=== PATIENT | male | born 1975 | race African-American/Black ===

== ENCOUNTER 2017-02-02 21:00 | Emergency (ER) | payer SELFPAY ==
[~2017-02-02] VITALS: Ht 185.4 cm; Wt 102.1 kg
[2017-02-02 21:22] VITALS: BP 128/70
[2017-02-02 21:47] LABS: BILIRUBIN,URINE NEGATIVE (NEG); GLUCOSE,URINE NEGATIVE (NEG); NITRITE,URINE NEGATIVE (NEG); PROTEIN,URINE NEGATIVE (NEG-TRACE); UROBILINOGEN,URINE 0.2 mg/dL (0.2 mg/dL)
[2017-02-02 21:55] LABS: BACTERIA,URINE 0 /HPF (0-FEW); RBC,URINE OCC /HPF (0-2); SQUAMOUS EPITHELIAL CELL,UR OCC /LPF; WBC,URINE 20-40 /HPF (0-4)
[2017-02-02] MEDS ORDERED: metroNIDAZOLE 500 MG TABLET PO ONE (22:00)
[2017-02-02] MEDS ORDERED: AZITHROMYCIN 250 MG TABLET. PO ONE (22:00)
[2017-02-02] MEDS ORDERED: cefTRIAXone IM 250 MG VIAL IM ONE (22:00)
--- NOTE | 2017-02-02 22:14 | PHYS DOC ---
Past Medical History Past Medical History: No Pertinent History Past Surgical History: No Surgical History Alcohol Use: Occasionally Drug Use: None Adult General Chief Complaint Chief Complaint: PAIN ON URINATION HPI HPI Patient is a 41 year old medical presents with dysuria and penile discharge for 1 day. Patient is concerned about STDs and would like to be tested and treated. He states the partner has similar symptoms. He states he has hx of previous STDs Review of Systems Review of Systems Constitutional: Denies fever or chills [] GI: Denies abdominal pain, nausea, vomiting, bloody stools or diarrhea [] : dysuria and penile discharge Musculoskeletal: Denies back pain or joint pain [] Integument: Denies rash or skin lesions [] Neurologic: Denies headache, focal weakness or sensory changes [] Current Medications Current Medications Current Medications Medications (Trade) Dose Ordered Sig/Cinthia Start Time Stop Time Status Last Admin Dose Admin Azithromycin (Zithromax) 1,000 mg 1X ONCE 02/02/17 22:00 02/02/17 22:01 DC Ceftriaxone Sodium (Rocephin Im) 250 mg 1X ONCE 02/02/17 22:00 02/02/17 22:01 DC Metronidazole (Flagyl) 2,000 mg 1X ONCE 02/02/17 22:00 02/02/17 22:01 DC Allergies Allergies Allergies Coded Allergies Type Severity Reaction Last Updated Verified No Known Drug Allergies 02/02/17 No Physical Exam Physical Exam Constitutional: Well developed, well nourished, no acute distress, non-toxic appearance. [] Abdomen: Bowel sounds normal, soft, no tenderness, no masses, no pulsatile masses. [] Skin: Warm, dry, no erythema, no rash. [] Back: No tenderness, no CVA tenderness. [] Extremities: No tenderness, no cyanosis, no clubbing, ROM intact, no edema. [] Neurologic: Alert and oriented X 3, normal motor function, normal sensory function, no focal deficits noted. [] Psychologic: Affect normal, judgement normal, mood normal. [] Current Patient Data Vital Signs Vital Signs Date Time Temp Pulse Resp B/P (MAP) Pulse Ox O2 Delivery O2 Flow Rate FiO2 02/02/17 21:22 98.8 82 16 95 Room Air 98.8 Lab Values Laboratory Tests Test 02/02/17 21:35 Urine Collection Type Unknown Urine Color Yellow Urine Clarity Clear Urine pH 6.0 Urine Specific Hutchinson >=1.030 Urine Protein Negative mg/dL (NEG-TRACE) Urine Glucose (UA) Negative mg/dL (NEG) Urine Ketones (Stick) Negative mg/dL (NEG) Urine Blood Negative (NEG) Urine Nitrite Negative (NEG) Urine Bilirubin Negative (NEG) Urine Urobilinogen Dipstick 0.2 mg/dL (0.2 mg/dL) Urine Leukocyte Esterase Moderate (NEG) Urine RBC Occ /HPF (0-2) Urine WBC 20-40 /HPF (0-4) Urine Squamous Epithelial Cells Occ /LPF Urine Bacteria 0 /HPF (0-FEW) Urine Hyaline Casts Occasional /HPF Urine Mucus Marked /LPF EKG EKG [] Radiology/Procedures Radiology/Procedures [] Course & Med Decision Making Course & Med Decision Making Pertinent Labs and Imaging studies reviewed. (See chart for details) Patient is in the ED with STD concern and would like to be tested and treated. He was given Rocephin, azithromycin and Flagyl. Urine was sent to lab. Educated on STDs and the need to use protection at all times. Follow-up with the health department for further STD concerns. Recommended he contacts all his sex partners, let them know he was treated for STDs and make sure they get treated. Instructed not to have sex for one week. Dragon Disclaimer Dragon Disclaimer This electronic medical record was generated, in whole or in part, using a voice recognition dictation system. Departure Departure Impression: Primary Impression: Concern about STD in male without diagnosis Disposition: 01 HOME, SELF-CARE Condition: STABLE Referrals: NO PCP (PCP) follow up with the health department for STD concerns. Patient Instructions: Sexually Transmitted Disease Additional Instructions: You were seen with STD concern. You were treated prophylaxis in the ED. We will contact to in 3-7 days if your test is positive. Do not have sex for 7 days. You must contact all your sex partners, let them know you were treated for STDs and ask them to seek treatment too. Use protection at all times. Follow-up with the health department for further STD concerns. JARRED CRUZ APRN Feb 02, 2017 22:14
== END 2017-02-02 22:18 | disposition home or self-care (01) ==
LOC: ER 21:00
DX: Z11.3 Encounter for screening for infections with a predominantly sexual mode of transmission (principal); R30.0 Dysuria; R36.9 Urethral discharge, unspecified
CPT/HCPCS: 81001; 87491; 87591; 96372; 99284; J0696; Q0144